=== PATIENT | female | born 1940 | race Caucasian/White ===

== ENCOUNTER 2021-07-07 11:06 | Emergency (ER) | payer MEDICARE, MEDICAID ==
[~2021-07-07] VITALS: Ht 157.5 cm; Wt 67.3 kg
[~2021-07-07 11:06] MED LIST: CEPHALEXIN500 M1 PO; ZESTRIL 10MG10 MG PO
[2021-07-07 11:22] VITALS: PULSE 67; TEMP 97.4
[2021-07-07] MEDS ORDERED: TYLENOL 500MG500 MG PO (11:53)
[2021-07-07] MEDS ORDERED: AFRIN 15 ML15 ML NS (11:54)
[2021-07-07] MEDS ORDERED: ASPIRIN 81M81 MG/TA2 PO (11:55)
[2021-07-07] MEDS ORDERED: AQUAPHOR BABY HEA41% TP (11:55)
[2021-07-07] MEDS ORDERED: DULCOLAX S10 MG/SUPP RC (11:56)
[2021-07-07] MEDS ORDERED: CARDIZEM CD 12120 MG PO (12:07)
[2021-07-07] MEDS ORDERED: COLACE 100100 MG/CAP PO (12:07)
[2021-07-07] MEDS ORDERED: ARICEPT10 MG PO (12:08)
[2021-07-07] MEDS ORDERED: NEURONTIN600 MG/TAB PO (12:09)
[2021-07-07] MEDS ORDERED: GERI-LANTA 355355 ML PO (12:10)
[2021-07-07] MEDS ORDERED: GERI-TUSSI100 MG/5 M PO (12:10)
[2021-07-07] MEDS ORDERED: HALDOL .5M0.5 MG/TAB PO (12:11)
[2021-07-07] MEDS ORDERED: LASIX 40MG TABL40 MG PO (12:12)
[2021-07-07] MEDS ORDERED: MELATONIN3 M1 (12:12)
[2021-07-07] MEDS ORDERED: TOPROL XL 50MG50 MG PO (12:13)
[2021-07-07] MEDS ORDERED: MIRALAX PA17 GM/Dose PO (12:13)
[2021-07-07] MEDS ORDERED: COMPLETE MULTI1 TAB PO (12:14)
[2021-07-07] MEDS ORDERED: NAMENDA 10MG TA10 MG PO (12:14)
[2021-07-07] MEDS ORDERED: SALINE 45 ML45 ML NS (12:15)
[2021-07-07] MEDS ORDERED: DESYREL 100MG100 MG PO (12:15)
[2021-07-07 12:45] VITALS: BP 107/87
== END 2021-07-07 12:49 | disposition home or self-care (01) ==
LOC: COL.ER 11:06
DX: M79.605 Pain in left leg (principal); I10 Essential (primary) hypertension; F03.90 Unspecified dementia, unspecified severity, without behavioral disturbance, psychotic disturbance, mood disturbance, and anxiety; Z79.899 Other long term (current) drug therapy